=== PATIENT | male | born 1980 | race Caucasian/White ===

== ENCOUNTER 2017-04-21 19:49 | Emergency (ER) | payer BC ==
[~2017-04-21] VITALS: Ht 190.5 cm; Wt 135.2 kg
[2017-04-21] MEDS ORDERED: MULTTAB67 PO (19:57)
[2017-04-21] MEDS ORDERED: LISI-515 PO (19:57)
[2017-04-21 19:58] VITALS: BP 140/81; PULSE 101; RESP 18; TEMP 102.6; O2SAT 95
[2017-04-21 21:20] VITALS: BP 151/82; PULSE 91; RESP 18; TEMP 102.5; O2SAT 96
--- NOTE | 2017-04-21 21:41 | PD ---
HPI Chief Complaint: Fever Time Seen by Provider: 21:23 Travel History International Travel<30 days: No Contact w/Intl Traveler<30days: No Traveled to known affect area: No History of Present Illness HPI 36yo M with no significant PMH presents to the ED with c/o fever, cough, sob, generalized headache, generalized muscleaches, nausea, nonbloody diarrhea for 4 days. Denies any recent traveling or sick contacts. Denies any chest pain, vomiting, abdominal pain, visual changes, dysuria, hematuria, focal weakness or numbness. Pt was seen at urgent care and send here for further evaluation. Pt last took acetaminophen about an hour ago. Headache is generalized, mild about a 3 out of 10. Pt does travel to and from [facility] airport. Denies any history of PE, DVT. PFSH Past Medical History Diminished Hearing: No Hypertension: Yes Immunizations Current: Yes Tetanus Vaccination: Unknown Influenza Vaccination: No Past Surgical History Abdominal Surgery: Yes (UMBILICAL HERNIA) Social History Alcohol Use: Yes (OCC) Tobacco Use: No Substance Use: No Allergies-Medications (Allergen,Severity, Reaction): Coded Allergies: No Known Allergies (Verified Allergy, Unknown, 04/21/17) Reported Meds & Prescriptions Reported Meds & Active Scripts Active Zithromax Z-Justo (Azithromycin) 250 Mg Dspk 250 Mg PO DIRECTED 500 MG (2 tabs) day 1, then 1 tab days 2-5. Reported Multiple Vitamin 1 Tab 1 Tab PO DAILY Lisinopril 20 Mg Tab 20 Mg PO DAILY Review of Systems Except as stated in HPI: all other systems reviewed are Neg Physical Exam Narrative GENERAL: 36yo M in mild distress. SKIN: Focused skin assessment warm/dry. HEAD: Atraumatic. Normocephalic. EYES: Pupils equal and round at 3mm bilaterally. EOMI. No scleral icterus. No injection or drainage. ENT: No nasal bleeding or discharge. Mucous membranes pink and moist. NECK: Trachea midline. No JVD. No nuchal rigidity. CARDIOVASCULAR: Regular rate and rhythm. No murmur appreciated. RESPIRATORY: No accessory muscle use. Clear to auscultation. Breath sounds equal bilaterally. GASTROINTESTINAL: Abdomen soft, non-tender, nondistended. No rebound tenderness or guarding. MUSCULOSKELETAL: No obvious deformities. No clubbing. No cyanosis. No edema. NEUROLOGICAL: Awake and alert. No obvious cranial nerve deficits. Motor grossly within normal limits. Normal speech. PSYCHIATRIC: Appropriate mood and affect; insight and judgment normal. Data Data Last Documented VS Vital Signs Date Time Temp Pulse Resp B/P (MAP) Pulse Ox O2 Delivery O2 Flow Rate FiO2 04/22/17 02:18 83 18 148/80 (102) 96 Room Air 04/22/17 00:10 99.1 Orders Orders Complete Blood Count With Diff (04/21/17 21:33) Basic Metabolic Panel (Bmp) (04/21/17 21:33) Troponin I (04/21/17 21:33) Electrocardiogram (04/21/17 ) Chest, Single Ap (04/21/17 ) Influenzae A/B Antigen (04/21/17 21:33) Urinalysis - C+S If Indicated (04/21/17 21:33) Lactic Acid Sepsis Protocol (04/21/17 21:33) Blood Culture (04/21/17 21:33) Ibuprofen (Motrin) (04/21/17 21:45) Sodium Chlor 0.9% 1000 Ml Inj (Ns 1000 M (04/21/17 21:45) Ondansetron Inj (Zofran Inj) (04/21/17 21:45) Ceftriaxone Inj (Rocephin Inj) (04/21/17 22:30) Azithromycin (Zithromax) (04/21/17 22:30) Prothrombin Time / Inr (Pt) (04/21/17 22:27) Act Partial Throm Time (Ptt) (04/21/17 22:27) D-Dimer (04/21/17 22:27) Sodium Chlor 0.9% 1000 Ml Inj (Ns 1000 M (04/22/17 01:30) Ct Pulmonary Angiogram (04/22/17 ) Iohexol 350 Inj (Omnipaque 350 Inj) (04/21/17 23:45) Labs Laboratory Tests Test 04/21/17 20:50 04/21/17 21:55 04/22/17 00:45 White Blood Count 9.5 TH/MM3 Red Blood Count 5.17 MIL/MM3 Hemoglobin 15.5 GM/DL Hematocrit 47.9 % Mean Corpuscular Volume 92.7 FL Mean Corpuscular Hemoglobin 30.0 PG Mean Corpuscular Hemoglobin Concent 32.4 % Red Cell Distribution Width 13.4 % Platelet Count 192 TH/MM3 Mean Platelet Volume 8.5 FL Neutrophils (%) (Auto) 88.8 % Lymphocytes (%) (Auto) 5.3 % Monocytes (%) (Auto) 5.6 % Eosinophils (%) (Auto) 0.1 % Basophils (%) (Auto) 0.2 % Neutrophils # (Auto) 8.5 TH/MM3 Lymphocytes # (Auto) 0.5 TH/MM3 Monocytes # (Auto) 0.5 TH/MM3 Eosinophils # (Auto) 0.0 TH/MM3 Basophils # (Auto) 0.0 TH/MM3 CBC Comment DIFF FINAL Differential Comment Prothrombin Time 12.6 SEC Prothromb Time International Ratio 1.1 RATIO Activated Partial Thromboplast Time 32.3 SEC D-Dimer Quantitative (PE/DVT) 0.57 MG/L FEU Blood Urea Nitrogen 12 MG/DL Creatinine 1.40 MG/DL Random Glucose 106 MG/DL Calcium Level 8.6 MG/DL Sodium Level 134 MEQ/L Potassium Level 4.0 MEQ/L Chloride Level 99 MEQ/L Carbon Dioxide Level 25.7 MEQ/L Anion Gap 9 MEQ/L Estimat Glomerular Filtration Rate 57 ML/MIN Troponin I LESS THAN 0.02 NG/ML Lactic Acid Level 1.1 mmol/L Urine Color YELLOW Urine Turbidity CLEAR Urine pH 6.5 Urine Specific [place] GREATER THAN 1.035 Urine Protein 100 mg/dL Urine Glucose (UA) 100 mg/dL Urine Ketones 40 mg/dL Urine Occult Blood TRACE Urine Nitrite NEG Urine Bilirubin NEG Urine Leukocyte Esterase NEG Urine RBC 0-3 /hpf Urine WBC 0-2 /hpf Urine Squamous Epithelial Cells 0-5 /hpf Urine Bacteria NONE /hpf Microscopic Urinalysis Comment CULT NOT INDICATED MDM Medical Decision Making Medical Screen Exam Complete: Yes Emergency Medical Condition: Yes Interpretation(s) EKG: NSR 95bpm. RAD. TWI III. Differential Diagnosis Influenza vs. viral syndrome vs. sinus headache vs. pneumonia Narrative Course 36yo M presents to the ED with multiple symptoms. Labs reviewed, no leukocytosis. Lactic acid normal at 1.1. Troponin negative. Creatinine mildly increased at 1.40. CXR shwoed left perihilar infiltrate. Pt given ibuprofen, ceftriaxone and azithromycin. States that he feels a little better. Influenza negative. Given that pt had recent travel, EKG showed right sided strain, I have low suspicion for PE so D-dimer was ordered. D-dimer was mildly elevated at 0.57. Sign out to next team to follow up CT angio to r/o PE. Diagnosis Primary Impression: Pneumonia Qualified Codes: J18.9 - Pneumonia, unspecified organism Scripts Azithromycin (Zithromax Z-Justo) 250 Mg Dspk 250 MG PO DIRECTED for Infection, #1 DSPK 0 Refills 500 MG (2 tabs) day 1, then 1 tab days 2-5. Prov: Raissa Campbell MD 04/22/17 Berna Arizmendi DO Apr 21, 2017 21:41
[2017-04-21] MEDS ORDERED: ONDANSETRON HCL 4 MG/2 ML VIAL IV PUSH ONE (21:45)
[2017-04-21] MEDS ORDERED: SODIUM CHLOR 0.9% 1000 ML INJ 1,000 ML IV ONE (21:45)
[2017-04-21] MEDS ORDERED: IBUPROFEN 600 MG TAB PO ONE (21:45)
--- NOTE | 2017-04-21 22:01 | RADRPT ---
EXAM DATE/TIME: 04/21/2017 21:48 [facility] COMPARISON: No previous studies available for comparison. INDICATIONS : Shortness of breath, fever and chills for three days. MEDICAL HISTORY : Hypertension. SURGICAL HISTORY : None. ENCOUNTER: Initial ACUITY: 3 days PAIN SCORE: 0/10 LOCATION: Bilateral chest FINDINGS: Small lung volumes with mild atelectasis/vascular crowding. Superimposed left perihilar infiltrate woodard spected. No large or confluent consolidation. No pleural effusion or pneumothorax. Heart size within normal limits. CONCLUSION: Left perihilar infiltrate. Shabbir Mix MD on April 21, 2017 at 21:59 Board Certified Radiologist. This report was verified electronically.
[2017-04-21 22:08] LABS: AUTOMATED NEUTROPHIL # 8.5 TH/MM3 (1.8-7.7); BASOPHIL % 0.2 % (0.0-2.0); EOSINOPHIL % 0.1 % (0.0-4.0); HEMATOCRIT 47.9 % (39.0-51.0); LYMPH % 5.3 % (9.0-44.0); LYMPHOCYTE # 0.5 TH/MM3 (1.0-4.8); MEAN CELL VOLUME 92.7 FL (80.0-100.0); MEAN CORPUSCULAR HGB CONC 32.4 % (32.0-36.0); MONO % 5.6 % (0.0-8.0); NEUT % 88.8 % (16.0-70.0); PLATELET COUNT 192 TH/MM3 (150-450); RED BLOOD COUNT 5.17 MIL/MM3 (4.50-5.90); RED CELL DISTRIBUTION WIDTH 13.4 % (11.6-17.2); WHITE BLOOD COUNT 9.5 TH/MM3 (4.0-11.0)
[2017-04-21 22:16] LABS: CHLORIDE 99 MEQ/L (98-107); HEMO FLAGS DIFF FINAL; SODIUM (NA) 134 MEQ/L (136-145)
[2017-04-21 22:19] LABS: ANION GAP 9 MEQ/L (5-15); BICARBONATE 25.7 MEQ/L (21.0-32.0); BLOOD UREA NITROGEN 12 MG/DL (7-18)
[2017-04-21 22:23] LABS: GLOMERULAR FILTRATION RATE 57 ML/MIN (>89)
[2017-04-21] MEDS ORDERED: cefTRIAXone INJ 1,000 MG in SODIUM CHLORIDE 0.9% INJ 100 ML IV ONE (22:30)
[2017-04-21] MEDS ORDERED: AZITHROMYCIN 250 MG TAB PO ONE (22:30)
[2017-04-21 23:01] VITALS: BP 164/71; PULSE 88; RESP 18; TEMP 102.6; O2SAT 95
[2017-04-21] MEDS ORDERED: IOHEXOL 350 MG/ML 10 ML VIAL (for RAD DIAG) IVCONTRAST ONE (23:45)
[2017-04-22 00:10] VITALS: BP 164/70; PULSE 82; RESP 18; TEMP 99.1; O2SAT 95
[2017-04-22 01:18] VITALS: BP 140/67; PULSE 80; RESP 18; O2SAT 97
[2017-04-22] MEDS ORDERED: SODIUM CHLOR 0.9% 1000 ML INJ 1,000 ML IV SCH (01:30)
[2017-04-22 02:15] VITALS: BP 148/80
[2017-04-22 02:18] VITALS: BP 148/80; PULSE 83; RESP 18; O2SAT 96
[2017-04-22 03:33] LABS: GLUCOSE,URINE 100 mg/dL (NEG); KETONE, URINE 40 mg/dL (NEG); NITRITE,URINE NEG (NEG); PH, URINE 6.5 (5.0-8.5)
[2017-04-22 03:39] LABS: APTT (PATIENT) 32.3 SEC (24.3-30.1); INTERNATIONAL NORMALIZED RATIO 1.1 RATIO; PROTHROMBIN TIME - PATIENT 12.6 SEC (9.8-11.6)
--- NOTE | 2017-04-22 03:54 | PD ---
Physical Exam Date Seen by Provider: Apr 22, 2017 Time Seen by Provider: 01:27 Narrative Accepted in transfer of care from Dr. Arizmendi GENERAL: Well-developed well-nourished male in no acute distress no respiratory distress SKIN: Warm and dry. HEAD: Normocephalic. EYES: No scleral icterus. No injection or drainage. NECK: Supple, trachea midline. No JVD or lymphadenopathy. CARDIOVASCULAR: Regular rate and rhythm without murmurs, gallops, or rubs. RESPIRATORY: Breath sounds equal bilaterally. No accessory muscle use. GASTROINTESTINAL: Abdomen soft, non-tender, nondistended. Data Data Last Documented VS Vital Signs Date Time Temp Pulse Resp B/P (MAP) Pulse Ox O2 Delivery O2 Flow Rate FiO2 04/22/17 01:18 80 18 140/67 (91) 97 Room Air 04/22/17 00:10 99.1 Orders Orders Complete Blood Count With Diff (04/21/17 21:33) Basic Metabolic Panel (Bmp) (04/21/17 21:33) Troponin I (04/21/17 21:33) Electrocardiogram (04/21/17 ) Chest, Single Ap (04/21/17 ) Influenzae A/B Antigen (04/21/17 21:33) Urinalysis - C+S If Indicated (04/21/17 21:33) Lactic Acid Sepsis Protocol (04/21/17 21:33) Blood Culture (04/21/17 21:33) Ibuprofen (Motrin) (04/21/17 21:45) Sodium Chlor 0.9% 1000 Ml Inj (Ns 1000 M (04/21/17 21:45) Ondansetron Inj (Zofran Inj) (04/21/17 21:45) Ceftriaxone Inj (Rocephin Inj) (04/21/17 22:30) Azithromycin (Zithromax) (04/21/17 22:30) Prothrombin Time / Inr (Pt) (04/21/17 22:27) Act Partial Throm Time (Ptt) (04/21/17 22:27) D-Dimer (04/21/17 22:27) Labs Laboratory Tests Test 04/21/17 20:50 04/21/17 21:55 White Blood Count 9.5 TH/MM3 Red Blood Count 5.17 MIL/MM3 Hemoglobin 15.5 GM/DL Hematocrit 47.9 % Mean Corpuscular Volume 92.7 FL Mean Corpuscular Hemoglobin 30.0 PG Mean Corpuscular Hemoglobin Concent 32.4 % Red Cell Distribution Width 13.4 % Platelet Count 192 TH/MM3 Mean Platelet Volume 8.5 FL Neutrophils (%) (Auto) 88.8 % Lymphocytes (%) (Auto) 5.3 % Monocytes (%) (Auto) 5.6 % Eosinophils (%) (Auto) 0.1 % Basophils (%) (Auto) 0.2 % Neutrophils # (Auto) 8.5 TH/MM3 Lymphocytes # (Auto) 0.5 TH/MM3 Monocytes # (Auto) 0.5 TH/MM3 Eosinophils # (Auto) 0.0 TH/MM3 Basophils # (Auto) 0.0 TH/MM3 CBC Comment DIFF FINAL Differential Comment Prothrombin Time 12.6 SEC Prothromb Time International Ratio 1.1 RATIO Activated Partial Thromboplast Time 32.3 SEC D-Dimer Quantitative (PE/DVT) 0.57 MG/L FEU Blood Urea Nitrogen 12 MG/DL Creatinine 1.40 MG/DL Random Glucose 106 MG/DL Calcium Level 8.6 MG/DL Sodium Level 134 MEQ/L Potassium Level 4.0 MEQ/L Chloride Level 99 MEQ/L Carbon Dioxide Level 25.7 MEQ/L Anion Gap 9 MEQ/L Estimat Glomerular Filtration Rate 57 ML/MIN Troponin I LESS THAN 0.02 NG/ML Lactic Acid Level 1.1 mmol/L [facility] Medical Record Reviewed: Yes Supervised Visit with SALEEM: No Interpretation(s) UA: SG>1.035 Last Impressions Chest X-Ray 04/21/17 0000 Signed Impressions: Service Date/Time: April 21:48 - CONCLUSION: Left perihilar infiltrate. Shabbir Mix MD CBC & BMP Diagram 04/21/17 20:[address] pulmonary angiogram per reading radiologist no PE patchy infiltrates; " patchy bilateral ankle airspace disease most prominent in the left perihilar and basilar distribution concerning for multifocal pneumonic infiltrates small associated effusions no PE" per reading radiologist Dr. Victorino Castaneda Differential Diagnosis Accepted in transfer of care from Dr. Arizmendi; please refer to her dictation Narrative Course Accepted in transfer of care from Dr. Arizmendi for follow up of pending CT pulmonary angiogram with plan to discharge patient to home if imaging shows no evidence of PE; chest x-ray previously identified patient to have left perihilar pneumonia. CT pulmonary angiogram is negative for PE positive for patchy infiltrates. Patient informed of imaging results. Patient feels well and is desirous of being discharged home. Patient is aware his discharge diagnoses her current diagnosis is patchy pneumonia and sepsis. Patient states he hasn't felt well for approximately 3 days and has not been on any antibiotic. In the emergency department patient received Rocephin and azithromycin. Patient has been afebrile here in the emergency department within of identified to have elevated specific gravity urinalysis rare than 1.035 given additional IV fluid bolus of normal saline [place] patient is able to ambulate about the emergency department without becoming symptomatic. Patient like a trial of outpatient management and if symptoms recur or seem to worsen he'll return at that time but does not want to be admitted at this time. Patient is aware that his diagnosis is pneumonia meets sepsis criteria and dehydration he is not to work for 2 days is to follow-up with primary care provider return to the emergency department for reassessment. Patient is aware he is to take Tylenol 650 mg by mouth every 4 hours for fever 100.4F or greater and ibuprofen 800 mg every 8 hours by mouth for fever 100.4F or greater or for pleuritic pain or pain associated with inflammation. Patient's complete course of antibiotic. Patient may use over- the-counter Mucinex since secretions Patient is here to the emergency department for fever chills shortness of breath or any concerns; no work for 2 days; patient given prescription for azithromycin 500 mg day 250 mg daily for days 2 through 5 for a total of 6 tablets. Sepsis Criteria SIRS Criteria (2 or more): Temp > 100.9 or < 96.8, Heart rate over 90 Sepsis Criteria (SIRS+source): Infect source susp/known (pneumonia) Diagnosis Primary Impression: Pneumonia Additional Impressions: Sepsis Dehydration Referrals: Primary Care Physician 2 days Patient Instructions: General Instructions Departure Forms: Tests/Procedures, Work Release Special Instructions: no work x 2 days Additional Instruction: Increase fluid hydration Monitor temperature every 4 hours with thermometer and take as needed acetaminophen/Tylenol 650 mg every 4 hours for fever 100.4 days Fahrenheit or greater and ibuprofen/Motrin/Advil 800 mg as often as every 8 hours for fever 100.4F or greater for pain associated with inflammation Patient is to complete course of antibiotic as prescribed He may use [id number] Mucinex to thin secretions as needed for symptomatic relief Return the emergency department for fever chills shortness of breath or any concerns No work 2 days Med/Other Pt SpecificInfo: Prescription(s) given Scripts Azithromycin (Zithromax Z-Justo) 250 Mg Dspk 250 MG PO DIRECTED for Infection, #1 DSPK 0 Refills 500 MG (2 tabs) day 1, then 1 tab days 2-5. Prov: Raissa Campbell MD 04/22/17 Disposition: 01 DISCHARGE HOME Condition: Stable Raissa Campbell MD Apr 22, 2017 03:54
[2017-04-22] MEDS ORDERED: ZITHTAB PO (04:00)
[2017-04-22 04:43] LABS: BLOOD, URINE TRACE (NEG)
[2017-04-22 04:44] LABS: URINE COLOR YELLOW (YELLW/STRAW)
[2017-04-22 04:45] LABS: COMMENT (UR) CULT NOT INDICATED; CULTURE IF INDICATED CULT NOT INDICATED; RBC, URINE 0-3 /hpf (0-3); SQUAMOUS EPITHELIAL CELL URINE 0-5 /hpf (0-5); WBC, URINE 0-2 /hpf (0-5)
--- NOTE | 2017-04-22 09:07 | RADRPT ---
EXAM DATE/TIME: 04/21/2017 23:41 [facility] COMPARISON: CHEST SINGLE AP, April 21, 2017, 21:48. INDICATIONS : Shortness of breath for 3 days IV CONTRAST: 74 cc Omnipaque 350 (iohexol) IV RADIATION DOSE: 21.66 CTDIvol (mGy) ; Patient body habitus MEDICAL HISTORY : None SURGICAL HISTORY : None. ENCOUNTER: Initial ACUITY: 3 days PAIN SCALE: 8/10 LOCATION: chest TECHNIQUE: Volumetric scanning of the chest was performed using a pulmonary embolism protocol MIP images were re constructed. Using automated exposure control and adjustment of the mA and/or kV according to patien t size, radiation dose was kept as low as reasonably achievable to obtain optimal diagnostic quality images. DICOM format image data is available electronically for review and comparison. Follow-up recommendations for detected pulmonary nodules are based at a minimum on nodule size and pa tient risk factors according to Fleischner Society Guidelines. FINDINGS: PULMONARY ARTERIES: No filling defects are seen in the pulmonary arteries through the segmental level. LUNGS: Actual bilateral parenchymal patchy infiltrates, most prominent in the left perihilar distribution ex tending into the left base. Infiltrates are also seen in the right upper lung, right perihilar distri bution and right base. Small associated effusions. PLEURAE: Small bilateral effusions with . MEDIASTINUM: There is good visualization of the great vessels of the middle mediastinum. No evidence of mediastin al or hilar adenopathy/mass. MUSCULOSKELETAL: Degenerative spurring of the dorsal spine. MISCELLANEOUS: The visualized upper abdominal organs demonstrate no acute abnormality. CONCLUSION: 1. Patchy bilateral parenchymal airspace disease, most prominent in the left perihilar and basilar di stribution concerning for multifocal pneumonic infiltrates. 2. Small associated effusions. 3. No PE Victorino Ghotra MD on April 22, 2017 at 0:33 Board Certified Radiologist. This report was verified electronically.
--- NOTE | 2017-04-22 11:31 | EKG ---
Date Performed: 04/21/2017 Time Performed: 21:44:05 PTAGE: 36 years EKG: Sinus rhythm POSSIBLE RIGHT VENTRICULAR HYPERTROPHY ABNORMAL QRS-T ANGLE ABNORMAL ECG NO PREVIOUS TRACING DOCTOR: Jose Merchant Interpretating Date/Time 04/22/2017 11:29:28
== END 2017-04-22 02:25 | disposition home or self-care (01) ==
LOC: PHED 19:49
DX: J18.9 Pneumonia, unspecified organism (principal); E86.0 Dehydration; R94.31 Abnormal electrocardiogram [ECG] [EKG]; R06.02 Shortness of breath
CPT/HCPCS: 71010; 71275; 80048; 81001; 83605; 84484; 85025; 85379; 85610; 85730; 87040; 87804; 93005; 96361; 96365; 96375; 99285; J0696; J2405; J7030; Q9967